=== PATIENT | female | born 1950 | race Caucasian/White ===

== ENCOUNTER 2020-10-24 09:57 | Outpatient (CLI) | payer MEDICARE, SELFPAY ==
--- NOTE | ~2020-10-24 | DEXA_ITS ---
Bone Density Report Name: Dimple Ferguson Age: 70 Sex: Female Ethnicity: White Date of : 1950 Indication: osteopenia; height loss; Referring Provider: Krissy Clifton Study: Bone densitometry was performed. Exam Date: October 24, 2020 Accession number: [id number] Bone Density: Region BMD T-score Z-score Classification Femoral Neck (Left) 0.680 -1.5 0.3 Osteopenia Total Hip (Left) 0.794 -1.2 0.3 Osteopenia Total Hip Bilateral Avg 0.811 -1.1 0.5 Osteopenia Femoral Neck (Right) 0.681 -1.5 0.3 Osteopenia Total Hip (Right) 0.826 -1.0 0.6 Normal World Health Organization criteria for BMD impression classify patients as: Normal (T-score at or above -1.0), Osteopenia (T-score between -1.0 and -2.5), or Osteoporosis (T-score at or below -2.5). 10-year Fracture Risk(1): Major Osteoporotic Fracture 9.8% Hip Fracture 1.4% Reported Risk Factors: [place] (), Neck BMD=0.681, BMI=30.3 (1) FRAX(R) Version 3.08. Fracture probability calculated for an untreated patient. Fracture probability may be lower if the patient has received treatment. Previous Exams: Region Exam Age BMD T-score BMD Change BMD Change Date g/cm2 vs Baseline vs Previous Total Hip(Left) 10/24/2020 70 0.794 -1.2 -0.145(-15.4%) 0.041(5.4%)* 06/21/2018 68 0.753 -1.5 -0.186(-19.8%) 0.063(9.1%)* 10/25/2015 65 0.690 -2.1 -0.248(-26.5%) -0.099(-12.5%) 05/05/2012 62 0.789 -1.3 -0.149(-15.9%) -0.125(-13.7%) 08/08/2005 55 0.914 -0.2 -0.024(-2.6%) -0.024(-2.6%) 12/07/2002 52 0.939 0.0 Total Hip(Right) 10/24/2020 70 0.826 -1.0 -0.179(-17.8%) 0.049(6.3%)* 06/21/2018 68 0.777 -1.4 -0.228(-22.7%) 0.035(4.7%)* 10/25/2015 65 0.742 -1.6 -0.263(-26.1%) -0.078(-9.5%)# 05/05/2012 62 0.820 -1.0 -0.185(-18.4%) -0.156(-16.0%) 08/08/2005 55 0.976 0.3 -0.029(-2.9%)* -0.029(-2.9%)* 12/07/2002 52 1.005 0.5 *Denotes significance at 95% confidence level, LSC for Total Hip = 0.027 g/cm2 Clinical Information Provided by Patient: Has used the following medications: Vitamin D, Calcium Patient maximum height was 62 Menopause Age: 45 Does not regularly consume dairy products Drinks caffeinated beverages Onset of menses at age 12 Number of children 3 Impression: The patient has low bone mass, based on the Left Femoral Neck T-score. The patient has an estimated ten-year risk of hip fracture of 1.4% and an estimated ten-year risk of major fracture of 9.8%, based on the
--- NOTE | ~2020-10-24 | MM_ITS ---
EXAMINATION: MM screening [facility] BI w racquel HISTORY: Screening mammogram TECHNIQUE: Craniocaudal and mediolateral oblique 3-D tomosynthesis images were obtained and synthetic 2-D images were generated. CAD analysis was submitted and interpreted. COMPARISON: 09/28/2019, 09/19/2018, 09/09/2017 BREAST PARENCHYMAL COMPOSITION: There are scattered areas of fibroglandular density. FINDINGS: RIGHT BREAST: There is no evidence of suspicious mass, calcification, or architectural distortion to suggest malignancy. There has been no significant interval change. LEFT BREAST: An asymmetry is present in the anterior third inner breast 4 cm from the nipple on the c raniocaudal view. IMPRESSION: 1. Left breast asymmetry. 2. Additional mammographic views and possible breast ultrasound are recommended. BI-RADS Category 0: Incomplete: Needs additional imaging evaluation. Reviewed, dictated and finalized at location A. FINISHER MACHINE IMPRESSION: 1. Left breast asymmetry. 2. Additional mammographic views and possible breast ultrasound are recommended . BI-RADS Category 0: Incomplete: Needs additional imaging evaluation.
== END 2020-10-24 09:58 | disposition home or self-care (01) ==
DX: Z12.31 Encounter for screening mammogram for malignant neoplasm of breast (principal); Z78.0 Asymptomatic menopausal state; M85.89 Other specified disorders of bone density and structure, multiple sites
CPT/HCPCS: 77063; 77067; 77080

== ENCOUNTER 2020-11-14 09:49 | Outpatient (CLI) | payer MEDICARE, SELFPAY ==
[2020-11-14 11:25] LABS: Vitamin D 25 Hydroxy 90.5 ng/mL
== END 2020-11-14 09:50 | disposition home or self-care (01) ==
DX: Z13.21 Encounter for screening for nutritional disorder (principal); M81.0 Age-related osteoporosis without current pathological fracture
CPT/HCPCS: 36415; 82306

== ENCOUNTER 2020-11-21 11:23 | Outpatient (CLI) | payer MEDICARE, SELFPAY ==
--- NOTE | ~2020-11-21 | MMUS_ITS ---
EXAMINATION: MM diagnostic mammo unilat LT, US breast LT limited HISTORY: Follow-up left breast mass TECHNIQUE: Additional 3-D tomosynthesis images of the left breast were performed and synthetic 2-D im ages were generated. CAD analysis was submitted and interpreted. High resolution Limited left breast ultrasound was performed. COMPARISON: 10/24/2020 BREAST PARENCHYMAL COMPOSITION: Breast composed of scattered areas of fibroglandular density. FINDINGS: MAMMOGRAPHIC FINDINGS: There are no suspicious masses, calcifications or architectural distortion in the left breast to sugg est malignancy. ULTRASOUND: Limited left breast ultrasound: There is a subareolar cyst measuring 7 mm. No suspicious masses to zee ggest malignancy. IMPRESSION: 1. No evidence for malignancy in the left breast. 2. Routine yearly screening mammogram and regular clinical breast examination are recommended. BI-RADS Category 2: Benign finding(s). Reviewed, dictated and finalized at location A. F DRAFTER IMPRESSION: 1. No evidence for malignancy in the left breast. 2. Routine yearly screening mammogram and regular clinical breast examination a re recommended. BI-RADS Category 2: Benign finding(s).
== END 2020-11-21 11:24 | disposition home or self-care (01) ==
DX: R92.8 Other abnormal and inconclusive findings on diagnostic imaging of breast (principal)
CPT/HCPCS: 76642; 77065

== ENCOUNTER 2021-12-31 10:04 | Outpatient (CLI) | payer MEDICARE, SELFPAY ==
--- NOTE | ~2021-12-31 | MM_ITS ---
EXAMINATION: MM screening [facility] BI w racquel HISTORY: Screening mammogram TECHNIQUE: Craniocaudal and mediolateral oblique 3-D tomosynthesis images were obtained and synthetic 2-D images were generated. CAD analysis was submitted and interpreted. COMPARISON: 11/2020 diagnostic left mammogram and limited left breast ultrasound examination 10/2020, 09/28/2019 bilateral screening mammogram examinations BREAST PARENCHYMAL COMPOSITION: There are scattered areas of fibroglandular density. FINDINGS: There is no evidence of suspicious mass, calcification, or architectural distortion to sugg est malignancy in either breast. There has been no suspicious interval change. IMPRESSION: 1. No mammographic evidence of malignancy. 2. Recommend routine screening mammography in one year. BI-RADS Category 1: Negative Reviewed, dictated and finalized at location A.
== END 2021-12-31 10:05 | disposition home or self-care (01) ==
LOC: ANHIMG 10:06
PROVIDERS: Visit Provider Internal Medicine
DX: Z12.31 Encounter for screening mammogram for malignant neoplasm of breast (principal)
CPT/HCPCS: 77063; 77067

== ENCOUNTER 2022-10-07 13:55 | Emergency (ER) | payer MEDICARE, SELFPAY ==
--- NOTE | 2022-10-07 14:01 | ED.URI ---
HPI - URI/Sore Throat General Chief Complaint: Upper Respiratory Infection Stated Complaint: Sinus/Cough Time Seen by Provider: 10/07/22 14:10 Source: patient Mode of arrival: ambulatory Limitations: no limitations History of Present Illness HPI Narrative: Dimple is a 72-year-old female patient presenting to the clinic today with complaints of sinus congestion, fever, and cough x2 days. She reports no shortness of breath or chest pain. No known exposure to anyone with COVID, flu, or strep. MD elicited complaint: nasal congestion Related Data Home Medications Medication Instructions Recorded Confirmed Allergy Med. 10/07/22 Ibuprofen 10/07/22 Mucinex 10/07/22 Ortho Soothe 10/07/22 Pepcid AC 10/07/22 Xyzal 10/07/22 alendronate 70 mg tablet mg PO 10/07/22 cyclosporine 0.05 % eye drops in a drp 10/07/22 dropperette (Restasis) lisinopril 2.5 mg tablet mg 10/07/22 magnesium 10/07/22 mirabegron 50 mg tablet,extended mg PO 10/07/22 release 24 hr (Myrbetriq) rosuvastatin 10 mg tablet mg 10/07/22 Allergies Allergy/AdvReac Type Severity Reaction Status Date / Time No Known Allergies Allergy Verified 10/07/22 14:03 Review of Systems Review of Systems: Pertinent positives per HPI. Patient denies any rash, headache, visual changes, dizziness, shortness of breath, chest pain, palpitations, nausea, vomiting, diarrhea, constipation, abdominal pain, or any urinary issues. PMFSH Comments At the time of my signature, I reviewed and agree with the nursing past medical, surgical, social, and family history. There is no relevant family history pertinent to the patient complaint. Exam Narrative: General: Well-developed, well nourished, in no apparent distress Head: Normocephalic, atraumatic Eyes: Pupils equally round and reactive to light bilaterally, EOM intact, sclera and conjunctive clear, no discharge, lids normal Ears: TMs intact and clear, ear canals clear, no drainage, grossly hearing normal. Nose: Nares patent, clear nasal discharge, no inflammation, no sinus tenderness. Mouth: Oral pharynx without lesions or masses, good dentition, MMM. Postnasal drip Neck: Supple, trachea midline, no enlargement of anterior or posterior cervical nodes, no thyroid masses or goiter palpable. Cardio: Regular rate and rhythm, s1 and s2 normal, no murmur appreciated. Resp: Clear to auscultation bilaterally, no rhonchi, rales, wheezing or rubs Course Course Emergency Course: Portions of this record may have been created with voice recognition software. Level of Care: Express Care Visit Vital Signs Vital signs: Vital Signs Temperature 37.8 C H 10/07/22 14:05 Pulse Rate 97 10/07/22 14:05 Respiratory Rate 18 10/07/22 14:05 Blood Pressure 141/71 H 10/07/22 14:05 Pulse Oximetry 98 10/07/22 14:05 Oxygen Delivery Room Air 10/07/22 14:05 Temperature 37.8 C H 10/07/22 14:05 Pulse Rate 97 10/07/22 14:05 Respiratory Rate 18 10/07/22 14:05 Blood Pressure 141/71 H 10/07/22 14:05 Pulse Oximetry 98 10/07/22 14:05 Oxygen Delivery Room Air 10/07/22 14:05 Vital signs reviewed MDM - URI/Sore Throat MDM Narrative Medical decision making narrative: At the time of visit patient is resting comfortably on the exam table. COVID and influenza testing were performed in the clinic today. COVID testing was positive influenza testing was negative. Prescription was sent in for antivirals. Supportive measures were discussed with the patient she voiced understanding discharge instructions and agrees to treatment plan. Differential Diagnosis Differential diagnosis: Likely upper respiratory infection, otitis media, sinusitis, viral infection, bronchitis, influenza, pharyngitis and other (COVID) Lab Data Labs: Lab Results 10/07/22 Range/Units 14:19 POC SARS CoV-2 Ag Positive (Negative) Influenza A Screen Negative Re
[2022-10-07 14:05] VITALS: BP 141/71; PULSE 97; RESP 18; TEMP 37.8; O2SAT 98
== END 2022-10-07 14:54 | disposition home or self-care (01) ==
PROVIDERS: Emergency Provider Nurse Practitioner Family; PCP Internal Medicine
DX: U07.1 COVID-19 (principal); I10 Essential (primary) hypertension; E78.00 Pure hypercholesterolemia, unspecified; M41.9 Scoliosis, unspecified; Z85.820 Personal history of malignant melanoma of skin
CPT/HCPCS: 87426; 87804; 99213; C9803; G0463

== ENCOUNTER 2022-11-09 09:55 | Outpatient (CLI) | payer MEDICARE, SELFPAY ==
--- NOTE | ~2022-11-09 | DEXA_ITS ---
Bone Density Report Name: WILLIAMS HALEY Age: 72 Sex: Female Ethnicity: White Date of : 1950 Indication: osteopenia; monitoring treatment; height loss; cancer; postmenopausal Referring Provider: AHMETNATE Study: Bone densitometry was performed. Exam Date: November 09, 2022 Accession number: [id number] Bone Density: Region BMD T-score Z-score Classification Femoral Neck (Left) 0.664 -1.7 0.3 Osteopenia Total Hip (Left) 0.780 -1.3 0.3 Osteopenia Femoral Neck (Right) 0.687 -1.5 0.5 Osteopenia Total Hip (Right) 0.818 -1.0 0.6 Normal Total Hip Mean 0.799 -1.2 0.5 Osteopenia World Health Organization criteria for BMD impression classify patients as: Normal (T-score at or above -1.0), Osteopenia (T-score between -1.0 and -2.5), or Osteoporosis (T-score at or below -2.5). 10-year Fracture Risk: FRAX not reported because: Treated for osteoporosis Previous Exams: Region Exam Age BMD T-score BMD Change BMD Change Date g/cm2 vs Baseline vs Previous Total Hip(Left) 11/09/2022 72 0.780 -1.3 -0.009 (-1.2%) -0.014 (-1.7%) 10/24/2020 70 0.794 -1.2 0.005 (0.6%)# 0.041 (5.4%)* 06/21/2018 68 0.753 -1.5 -0.036 (-4.6%) 0.063 (9.1%)* 10/25/2015 65 0.690 -2.1 -0.099 (-12.5% -0.099 (-12.5% 05/05/2012 62 0.789 -1.3 Total Hip(Right) 11/09/2022 72 0.818 -1.0 -0.001 (-0.2%) -0.008 (-0.9%) 10/24/2020 70 0.826 -1.0 0.006 (0.7%)# 0.049 (6.3%)* 06/21/2018 68 0.777 -1.4 -0.043 (-5.2%) 0.035 (4.7%)* 10/25/2015 65 0.742 -1.6 -0.078 (-9.5%) -0.078 (-9.5%) 05/05/2012 62 0.820 -1.0 *Denotes significance at 95% confidence level, LSC for Total Hip = 0.027 g/cm2 # Denotes dissimilar scan types or analysis methods Clinical Information Provided by Patient: Is being treated for osteoporosis Has used the following medications: Fosamax (i.e. alendronate), Vitamin D, Calcium Has the following medical conditions: Cancer Patient maximum height was 62 Menopause Age: 45 Onset of menses at age 14 Number of children 3 Impression: The patient has low bone mass, based on the Left Femoral Neck T-score. No significant bone loss was observed. Discussion: PATIENT UNDER TREATMENT WITH NO SIGNIFICANT BMD LOSS SINCE LAST EXAM. In an untreated patient, BMD typically declines with age. A lack of decline or gain is usually a sign that treatment is efficacious and fracture risk is reduced. It is important to ask patients whether they are taking their medications and
== END 2022-11-09 09:56 | disposition home or self-care (01) ==
PROVIDERS: PCP Internal Medicine; Visit Provider Internal Medicine
DX: Z78.0 Asymptomatic menopausal state (principal); M81.0 Age-related osteoporosis without current pathological fracture; M85.89 Other specified disorders of bone density and structure, multiple sites
CPT/HCPCS: 77080

== ENCOUNTER 2023-02-18 09:12 | Outpatient (CLI) | payer MEDICARE, SELFPAY ==
--- NOTE | ~2023-02-18 | MM_ITS ---
EXAMINATION: MM screening [facility] BI w racquel HISTORY: Screening mammogram TECHNIQUE: Craniocaudal and mediolateral oblique 3-D tomosynthesis images were obtained and synthetic 2-D images were generated. CAD analysis was submitted and interpreted. COMPARISON: bilateral screening mammogram 3. diagnostic left mammogram and limited left breast ultrasound examination BREAST PARENCHYMAL COMPOSITION: There are scattered areas of fibroglandular density. FINDINGS: There is no evidence of suspicious mass, calcification, or architectural distortion to sugg est malignancy in either breast. There has been no suspicious interval change. IMPRESSION: 1. No mammographic evidence of malignancy. 2. Recommend routine screening mammography in one year. BI-RADS Category 1: Negative Reviewed, dictated and finalized at location A.
== END 2023-02-18 09:13 | disposition home or self-care (01) ==
PROVIDERS: PCP Internal Medicine; Visit Provider Internal Medicine
DX: Z12.31 Encounter for screening mammogram for malignant neoplasm of breast (principal)
CPT/HCPCS: 77063; 77067

== ENCOUNTER 2024-05-03 10:03 | Outpatient (CLI) | payer MEDICARE, SELFPAY ==
--- NOTE | ~2024-05-03 | MM_ITS ---
EXAMINATION: MM screening [facility] BI w racquel HISTORY: Screening TECHNIQUE: Craniocaudal and mediolateral oblique 3-D tomosynthesis images were obtained and synthetic 2-D images were generated. CAD analysis was submitted and interpreted. COMPARISON: Comparison to multiple prior studies sequentially, with oldest reviewed study dated 08/22. BREAST PARENCHYMAL COMPOSITION: Not dense: There are scattered areas of fibroglandular density. FINDINGS: There is no evidence of suspicious mass, calcification, or architectural distortion to sugg est malignancy in either breast. There has been no suspicious interval change. IMPRESSION: 1. No mammographic evidence of malignancy. 2. Recommend routine screening mammography in one year. BI-RADS Category 1: Negative Reviewed, dictated and finalized at location B.
== END 2024-05-03 10:04 | disposition home or self-care (01) ==
LOC: ANHIMG 10:05
PROVIDERS: PCP Internal Medicine; Visit Provider Internal Medicine
DX: Z12.31 Encounter for screening mammogram for malignant neoplasm of breast (principal)
CPT/HCPCS: 77063; 77067

== ENCOUNTER 2025-05-29 12:14 | Outpatient (CLI) | payer MEDICARE, SELFPAY ==
--- OUTSIDE RECORDS SUMMARY | 2010-02-14 07:30 | XMS_ITS | Continuity of Care Document ---
Author Organization [facility] Address [address] [place] [address] [place] [address] Phone Care Team Providers Care Pharmacy Benefit Manager Name Role Phone Yadiel Garcia Unavailable Unavailable Procedures Procedure Date Visual Field Examination-Technical Office/outpatient Visit, Est Office/outpatient Visit, Est Eye Exam, New Patient Advance Directives Directive Yes / No Effective Date File Name No Information Encounters Encounter Description Practice Location Reason(s) For Visit Diagnoses Date Provider Providers Copied on Encounter [facility], [address] [place] [address] [address], [place], [place], [id number], tel:[phone] [facility] No Information 0 Jose Yadiel. [address] [place] [address], [facility], . tel:[phone] Referring Provider: Yadiel small, [address] [place] [address], [facility]. tel:[phone] Office/outpat ient [place], [facility] [address] [place] [address] [address], [place], [place], [id number], tel:[phone] [facility] No Information 0 Deriknasregi Yadiel. [address] [place] [address], [facility], [place]. tel:[phone] Office/outpat ient Visit, [facility], [address], [place], [place], [id number], [place] tel:[phone] [facility] No Information 1 9 Krishnasamy Yadiel. [address], [facility], [place]. tel:[phone] [facility], [address], [place], [place], [id number], [place] tel:[phone] [facility] No Information 0200 9 Krishnasamy Yadiel. [address], [facility], [place]. tel:[phone] Family History Family Member Type Diagnosis Age At Onset No Information Payers Payer name Insurance type Covered republican ID Authoriza tion(s) No Information Social History Type Description Quantity Date Captured Comments Sex Female Smoking Status No Information Chief Complaint And Reason For Visit No Information Reason For Referral Reason For Referral No Information History Of Present Illness Encounter Date Complaint History Of Prese nt Illness No Information Functional Status Date Functional Assessmen t No Information Instructions Date Instruction Additional Infor mation No Information Assessments Type Assessment Date No Information Patient Care Teams Name Effective Dates (start - stop) Status Members No Information
--- NOTE | ~2025-05-29 | MM_ITS ---
EXAMINATION: MM screening benjamin BI w racquel HISTORY: Screening TECHNIQUE: Craniocaudal and mediolateral oblique 3-D tomosynthesis images were obtained and synthetic 2-D images were generated. CAD analysis was submitted and interpreted. COMPARISON: Comparison to multiple prior studies sequentially, with oldest reviewed study dated , 09/19/2018 BREAST PARENCHYMAL COMPOSITION: There are scattered areas of fibroglandular density. FINDINGS: There is no evidence of suspicious mass, calcification, or architectural distortion to suggest malignancy in either breast. IMPRESSION: 1. No mammographic evidence of malignancy. 2. Recommend routine screening mammography in one year. BI-RADS Category 1: Negative Reviewed, dictated and finalized at location B.
--- OUTSIDE RECORDS SUMMARY | 2025-05-29 13:45 | XMS_ITS | Clinical Summary ---
Author Organization [facility] [employer] Address [address] [place] [address] Care Team Providers Care Cook Chill Technician Name Role Phone Veronika Wyatt MD Primary Care Provider [phone] Source Comments [facility] [employer],non-[facility] Affiliates and Associated Physician Practices is amultiple site organization consisting of ambulatory clinics and hospital sitesin [place], [place], [place] and [place]. This disclosure is being madepursuant to the Care Everywhere program and may not contain all information available regarding this patient. Last updated 18.[facility] [employer] Social History Tobacco Use Types Packs/Day Years Used Date Smoking Tobacco: Never Assessed Comments Unknown Sex and Gender Information Value Date Recorded Sex Assigned at Not on file Legal Sex Female 6:20 AM UPHOLSTERY TRIMMER Gender Identity Not on file Sexual Orientation Not on file Last Filed Vital Signs Vital Sign Reading Time Taken Comments Blood Pressure - - Pulse - - Temperature - - Respiratory Rate - - Oxygen Saturation - - Inhaled Oxygen Concentration - - Weight 67.1 kg (148 lb) 10/28/2015 10:12 AM UPHOLSTERY TRIMMER Height 152.4 cm (5') 10/28/2015 10:12 AM UPHOLSTERY TRIMMER Body Mass Index 28.9 10/28/2015 10:12 AM UPHOLSTERY TRIMMER Plan of Treatment Health Maintenance Due Date Last Done Comments BONE DENSITY TESTING 1950 COLOGUARD (AGES 45-75) - COL ON CA SCREENING 1950 COLON MONITORING 1950 COLONOSCOPY - COLON CA SCREENING 1950 CT COLONOGRAPHY - COLON CA SCREENING 1950 Colorectal Cancer Screening 1950 FIT - COLON CA SCREENING 1950 FLEX SIG - COLON CA SCREENING 1950 LIPID TESTING 1950 MAMMOGRAM 1950 HEPATITIS C SCREENING 01/30/1968 DTAP/TDAP/TD VACCINES (1 - Tdap) 1969 PNEUMOCOCCAL VACCINE 50+ (1 of 1 - PCV) 02/04/2000 ZOSTER VACCINE (1 of 2) 02/04/2000 DEPRESSION SCREENING 09/20/2024 Respiratory Syncytial Virus (RSV) Vaccine Pt: or over 60 yrs (1 - 1-dose 75+ series) 2025 COVID-19 VACCINE (1 - 2023-2 5 season) 2025 INFLUENZA VACCINE (#1) 2025 HEPATITIS B VACCINE Aged Out No longe r eligible based on patient's age to complete this topic HIB VACCINE Aged Out No longer eligi ble based on patient's age to complete this topic HPV VACCINE Aged Out No longer eligi ble based on patient's age to complete this topic MENINGOCOCCAL (Group B) VACC INE SHARED DECISION-MAKING Aged Out No longer eligibl e based on patient's age to complete this topic MENINGOCOCCAL GROUPS A/C/Y/W VACCINE Aged Out No longer eligible b ased on patient's age to complete this topic Insurance [facility] Care Teams Cook Chill Technician Relationship Specialty Start Date End Date Veronika Wyatt MD [facility] [place] [address] PCP - General Internal Medicine 12/28/12
--- OUTSIDE RECORDS SUMMARY | 2025-05-29 13:45 | XMS_ITS | Clinical Summary ---
Author Organization [facility] Address [address] [place] [address] Phone Care Team Providers Care Teenage Babysitter Name Role Phone Krissy Clifton MD Primary Care Provider + Allergies Active Allergy Reactions Criticality Noted Date Comments Adhesive Rash Low 03/05/2016 Cefadroxil Rash Low 10/12/2016 Sulfa (Sulfonamide Antibiotics) Hives High 09/21 Medications cetirizine (ZYRTEC) 10 mg tablet Take 10 mg by mouth daily. Active cholecalciferol , vitamin D3, 1,000 unit Take by mouth. Acti ve calcium-choleca lciferol (OS-FORD 500+D) 500 mg(1,250mg) -200 unit tablet Take 1 Tablet by mouth daily. Active fexofenadine HCl (MUCINEX ALLERGY ORAL) Take by mouth. A ctive MELATONIN ORAL Take by mouth. Active benzonatate (TESSALON) 100 mg capsuleIndicati ons:Cough Take 1 Capsule (100 mg) by mouth 3 times daily as needed for Cough. 90 Capsule 1 2 Active Restasis 0.05 % emulsion INSTILL 1 DROP IN BOTH EYES TWICE DAILY 3 Active meloxicam (MOBIC) 15 mg tablet Take 15 mg by mouth daily. 3 Active OTHER Uqora urinary supplement very seldom taking medication Active multivitamin (DAILY-NICHO) tablet Take 1 Tablet by mouth daily. Active levocetirizine (Xyzal) 5 mg tablet Take 5 mg by mouth late in the day. Active lisinopriL (PRINIVIL) 2.5 mg tabletIndicatio ns:HTN (hypertension), benign Take 1 Tablet (2.5 mg) by mouth daily. 180 Tablet 1 4 Active mupirocin (BACTROBAN) 2 % Ointment APPLY TOPICALLY TO BIOPSY SITE DAILY 5 Active pantoprazole (PROTONIX) 40 mg Tablet, Delayed Release (E.C.)Indicatio ns:Gastroesopha geal reflux disease, unspecified whether esophagitis present TAKE 1 TABLET(40 MG) BY MOUTH DAILY 90 Tablet 1 5 Active vibegron (Gemtesa) 75 mg TabletIndicatio ns:Overactive bladder Take 75 mg by mouth daily. 90 Tablet 1 5 Active alendronate (FOSAMAX) 70 mg tablet TAKE 1 TABLET BY MOUTH EVERY 7 DAYS ON AN EMPTY STOMACH BEFORE OTHER MEDICATIONS WITH 8 OUNCES OF WATER, STAY UPRIGHT FOR 30 MINUTES 12 Tablet 1 5 Active tirzepatide, weight loss, (ZEPBOUND) 2.5 mg/0.5 mL SolutionIndicat ions:Class 1 drug-induced obesity with serious comorbidity and body mass index (BMI) of 32.0 to 32.9 in adult,Prediabet es,HTN (hypertension), benign Inject 0.5 mL (2.5 mg) by subcutaneous injection every 7 days. 2 mL 6 5 Active fluticasone propionate (FLONASE) 50 mcg/spray [place], Suspension nasal inhalerIndicati ons:Chronic maxillary sinusitis,Seaso nal allergic rhinitis due to pollen Administer 2 Sprays in each nostril daily. 16 Gram 6 5 Active azelastine (ASTELIN) 137 mcg/actuation nasal sprayIndication s:Chronic seasonal allergic rhinitis due to pollen Administer 2 Sprays in each nostril 2 times daily. 30 mL 11 5 Active Active Problems Patient Care Coordination No te Formatting of this note migh t be different from the original. HCC Full Review 07/14/16 tn Problem Noted Date Diagnosed Date Varicose veins of both lower extremities with pa in 02/08/2025 Restless leg 01/18/2024 Assessment & Plan (01/18/2024 3:43 PM CDT): Patient would like to try OTC medication such as pain medication and topical pain medication. Recommend exercise. Will also screen for other underlying disease with blood work as well. Overactive bladder 01/18/2024 Assessment & Plan (01/18/2024 3:45 PM CDT): Increase oxybutynin to 10mg, urology referral placed. Prediabetes 12/09/2020 HTN (hypertension), benign 06/18/2020 Assessment & Plan (01/18/2024 3:41 PM CDT): Controlled. Continue current medication. Age-related osteoporosis wit hout current pathological fracture 09/08/2018 S/P parathyroidectomy 04/09/2016 History of hyperparathyroidism 04/09/2016 History of melanoma 10/17/2015 Scoliosis 10/17/2015 Overview (10/24/2015): Severe lumbar levoscoliosis Raynaud's phenomenon 2014 Overview (01/18/2024): Raynaud phenomenon Arthritis of knee 2014 Overview (01/18/2024): Arthritis of knee Resolved Problems Problem Noted Date Diagnosed Date Resolved Date Hyperparathyroidism 02/10/2016 03/20/20 16 Compression fracture 10/24/2015 016 Overview (10/24/2015): Probably acute mild compression fractures at the L2-L3 endplates as seen on MRI 10/23/15. Thyroid nodule 10/24/2015 01/06/2023 Overview (06/08/2017): Focal hypoechoic nodule seen on thyroid u/s 02/12/2011, which may represent an intrathyroidal parathyroid adenoma. Sestamibi imaging was recommended for confirmation. Further imaging revealed parathryoid adenoma, s/p parathyroidectomy Encounters Date Type Department Care Team Description 05/01/2025 Abstract [facility] - [facility] [address] [place] [id number] Krissy Clifton MD 04/04/2025 External Device Data [facility] ABSTRACTION Provider, Abstract 04/04/2025 External Device Data [facility] [place]STRACTION Provider, Abstract 03/13/2025 10:00 AM CDT Office Visit [facility] Urology at the [facility] [address] [place] [address] Leanna Fernandez MD Overactive bladder (Primary Dx); Urge incontinence; SIVA (stress urinary incontinence, female) 03/12/2025 10:00 AM CDT - 03/12/2025 11:59 PM CDT Hospital Encounter [facility] [address] [place] [phone] Krissy Clifton MD Discharge Disposition: Home or Self Care 03/07/2025 External Device Data [facility] ABSTRACTION Provider, Abstract from Last 3 Months Immunizations Immunization Administration Dates Next Due (ADACEL/BOOSTRIX)(10 YR UP) TDAP VACCINE, 0.5ML, IM 03/10/2007 (PNEUMOVAX 23)(50 YRS UP) PN EUMOCOCCAL POLYSACCHARIDE (PPV23) 0.5 ML, IM 06/08/2017 (PREVNAR 13)(6 WKS UP) PNEUM OCOCCAL CONJUGATE (PCV13) 0.5 ML, IM 07/25/2015 (SPIKEVAX) (12 YRS UP PRIMAR Y SERIES) COVID-19 VACCINE - MRNA-1273(PF) 100 MCG/0.5 ML IM SUSP 12/05/2020,11/07/2020 (TDVAX)(7 YRS UP) TETANUS AN D DIPHTHERIA TOXOIDS, ADSORBED (2 LF OF TETANUS TOXOID AND 2 LF OF DIPHTHERIA TOXOID), 0.5ML (PF), IM 03/10/2007 INFLUENZA VACCINE HIGH DOSE QUADRIVALENT 65 YR UP PF IM 07/08/2023,07/02/2022,06/26/2021 INFLUENZA VACCINE HIGH DOSE TRIVALENT SPLIT VIRUS, (65 YR UP), 0.5ML (PF), IM 07/27/2024 INFLUENZA VACCINE QUADRIVALE NT 6 MOS UP PF IM 05/28/2020 Influenza Seasonal Unspecifi ed Formulation IM 07/28/2010 Influenza Vaccine High Dose 65+ Yrs IM 9,07/25/2015 Influenza Vaccine Split 3+ Yrs PF IM 07/14/2016, 10/17/2015 Influenza Vaccine Tri Split 4+ Im 06/07/2018,,07/28/2011 Influenza Vaccine Tri Split 5+ Im 06/08/2017 PREVNAR (PCV13) pneumococcal 13-valent conjugate Vaccine 07/25/2015 Zoster Vaccine Live SQ 01/22/2011 Family History Medical History Relation Name Comments Cancer Father Mele Fernández Bladder Cance r Macular Degen Father Mele Fernández Cancer Mother Ivis Fernández Melamon a Kidney Disease Mother Ivis Fernández Poly- cystic kidney disease Breast Cancer Sister 1 Sulma Bowling Left Breast/ ductile Kidney Disease Sister 1 Sulma Bowling Poly-cystic disease Cancer Sister 2 Yojana Avilez Uterian Cancer Colon Cancer Neg Hx Relation Name Status Comments Father Mele Fernández (Age 77) bladder cancer Mother Ivis Fernández (Age 72) bl eeding ulcer Sister 1 Sulma Bowling Sister 2 Yojana Avilez Social History Tobacco Use Types Packs/Day Years Used Date Smoking Tobacco: Never Smokeless Tobacco: Never Tobacco Cessation:Counseling Given: No Alcohol Use Standard Drinks/Week Comments Yes 0 (1 standard drink = 0.6 oz pur e alcohol) Wine occasionally Financial Resource Strain Answer Date R ecorded How hard is it for you to pa y for the very basics like food, housing, medical care, and heating? Not very hard 07/02/2022 Food Insecurity Answer Date Recorded In the past 12 months, have you worried that your food would run out before you had money to buy more? Never true 07/02/2022 In the past 12 months, did y ou run out of food and didn't have money to buy more? Never true 07/02/2022 Transportation Needs Answer Date Record ed In the past 12 months, has l ack of transportation kept you from medical appointments or from getting medications? No 07/02/2022 Lack of Transportation (Non-Medical) Not on file 07/02/2022 Comments No Sex and Gender Information Value Date Recorded Sex Assigned at Female 07/23/2024 10:30 PM PRODUCT DESIGN ENGINEER Legal Sex Female 5:40 AM PRODUCT DESIGN ENGINEER Gender Identity Female 07/23/2024 10:30 PM PRODUCT DESIGN ENGINEER Sexual Orientation Not on file Last Filed Vital Signs Vital Sign Reading Time Taken Comments Blood Pressure 116/80 02/08/2025 9:52 AM CDT Pulse 92 02/08/2025 9:52 AM CDT Temperature 37.3 C (99.2 F) 02/08/2025 9:52 AM CDT Respiratory Rate 16 02/08/2025 9:52 AM CDT Oxygen Saturation 95% 02/08/2025 9:52 AM CDT Inhaled Oxygen Concentration - - Weight 72.6 kg (160 lb) 03/13/2025 10:00 AM CDT Height 149.9 cm (4' 11) 03/13/2025 10:00 AM CDT Body Mass Index 32.32 03/13/2025 10:00 AM CDT Plan of Treatment Upcoming Encounters Date Type Department Care Team (Late st Contact Info) Description 06/21/2025 12:00 PM CDT Office Visit [facility] Internal Medicine - [address] [address] Linda Yip FNP [address] [place] [address] 03/04/2026 10:00 AM CDT Office Visit [facility] Internal Medicine - [address] [address] Krissy Clifton MD [address] [place] [address] 03/14/2026 10:00 AM CDT Office Visit [facility] Urology at the [facility] Medicine [address] [place] [phone] Leanna Fernandez MD [address] [address] Health Maintenance Due Date Last Done Comments FIT/ DNA Q 3 YEARS (AUTO ORDER) 02/04/1968 FIT/FOBT Q 1 YEAR (AUTO ORDER) 02/04/1968 FLEX SIG/CT COLONOGRAPHY Q 5 YEARS (AUTO ORDER) 02/04/1968 FIT-DNA Q 3 years 1995 FIT/FOBT Q 1 year 1995 Flex Sig/CT Colonography Q 5 years 1995 ZOSTER VACCINE (2 of 3) 03/19/2011 01/22/2011 DTAP/TDAP/TD VACCINES (2 - T d or Tdap) 03/10/2017 03/10/2007, 03/10/2007 OSTEOPOROSIS SCREENING 11/09/2024 3, 06/21/2018, 10/25/2015, Additional history exists RSV VACCINE (60+ or ) (1 - 1-dose 75+ series) 2025 INFLUENZA VACCINE (#1) 2025 4, 07/27/2024, 07/08/2023, Additional history exists COVID-19 Vaccine (3 - 2024-2 6 season) 2025 12/05/2020, 11/07/2020 COLORECTAL CANCER SCREENING (AUTO ORDER) 08/26/2032 08/26/2022, 08/26/2022, 08/22/2012 COLORECTAL SCREENING 08/26/2032 08/26/2022, 08/26/2022, 08/22/2012, Additional history exists Colorectal Cancer Screening (AUTO ORDER) 08/26/2032 Colorectal Cancer Screening 08/26/2032 PNEUMOCOCCAL VACCINE 50+ YEARS Completed 0 06/08/2017, 06/08/2017, 07/25/2015, Additional history exists [place] Preventative Visit/Annual Wellness Visit Completed 02/08/2025, 01/18/2024, 01/06/2023, Additional history exists Procedures Procedure Name Priority Date/Time Associated Diagnosis Comments US RENAL AND BLADDER Routine 03/12/2025 10:21 AM CDT Family history of polycystic kidney disease DEXA SCAN Routine 11/09/2022 COLONOSCOPY REPORT 08/26/2022 10 :17 AM PRODUCT DESIGN ENGINEER from Last 3 Months or Most Recently Relevant to Health Maintenance Results * US RENAL AND BLADDER (03/12/2025 10:21 AM CDT) Anatomical Region Laterality Modality Abdomen Ultrasound 03/12/2025 10:2 1 AM CDT Impressions 03/12/2025 2:54 PM CDT IMPRESSION: The right kidney appears echogenic compared with the left consistent with right-sided chronic medical renal disease. No hydronephrosis. Narrative 03/12/2025 2:54 PM CDT EXAM: US RENAL AND BLADDER DATE: 03/12/2025 2:48 PM HISTORY: Family history of polycystic kidney disease COMPARISON: None. TECHNIQUE: Real time and color-flow Doppler ultrasound of the kidneys. FINDINGS: Right kidney:8.8 x 5.4 x 5.9 cm. Left kidney:10.0 x 3.8 x 4.2 cm. The right kidney appears generally echogenic when compared with the left. These findings would be consistent with right-sided chronic medical renal disease. No hydronephrosis of either kidney is noted and there are no apparent renal masses. No bladder abnormalities are seen. Procedure Note Mandy Hooker MD - 03/12/2025 EXAM: US RENAL AND BLADDER DATE: 03/12/2025 2:48 PM HISTORY: Family history of polycystic kidney disease COMPARISON: None. TECHNIQUE: Real time and color-flow Doppler ultrasound of the kidneys. FINDINGS: Right kidney:8.8 x 5.4 x 5.9 cm. Left kidney:10.0 x 3.8 x 4.2 cm. The right kidney appears generally echogenic when compared with the left. These findings would be consistent with right-sided chronic medical renal disease. No hydronephrosis of either kidney is noted and there are no apparent renal masses. No bladder abnormalities are seen. IMPRESSION: The right kidney appears echogenic compared with the left consistent with right-sided chronic medical renal disease. No hydronephrosis. Krissy Clifton MD ORDERABLES Final Re sult * HM DEXA SCAN (11/09/2022) us Abstract Provider HEALTH MAINTENANCE Final Resul t [facility] CLIA #[id number] [address] [place] [address], * COLONOSCOPY REPORT (08/26/2022 10:17 AM PRODUCT DESIGN ENGINEER) Narrative Procedure Note Cherie Hernandez DO - 08/26/2022 10:17 AM CST [facility] Endoscopy Patient Name: Dimple Ferguson Procedure Date: 08/26/2022 Date of : 1950 Attending MD: Cherie Hernandez DO, Procedure: Colonoscopy Indications: Screening for colorectal malignant neoplasm (last colonoscopy was 10 years ago) No known FH of CRC or advanced polyps. Providers: Cherie Hernandez DO Referring MD: Krissy Clifton MD Medicines: Monitored Anesthesia Care Complications: No immediate complications. Procedure: Informed consent was obtained for the procedure, including moderate sedation after risks were discussed. Based on the pre-procedure assessment, including review of the patient's medical history, medications, allergies, and review of systems, the patient was deemed to be an appropriate candidate for sedation. A timeout was performed. Continuous ECG monitoring, pulse oximetry, blood pressure monitoring, and direct observation were performed. The Colonoscope was introduced through the anus and advanced to the cecum, identified by appendiceal orifice and ileocecal valve. The colonoscopy was performed with difficulty due to significant looping. Successful completion of the procedure was aided by withdrawing the scope and replacing with the pediatric colonoscope, straightening and shortening the scope to obtain bowel loop reduction and using scope torsion. The patient tolerated the procedure well. The quality of the bowel preparation was good. The quality of the bowel preparation was evaluated using the BBPS (Cook Bowel Preparation Scale) with scores of: Right Colon = 3, Transverse Colon = 3 and Left Colon = 3 (entire mucosa seen well with no residual staining, small fragments of stool or opaque liquid). The total BBPS score equals 9. The ileocecal valve, appendiceal orifice, and rectum were photographed. Estimated Blood Loss: Estimated blood loss was minimal. Findings: The colon (entire examined portion) revealed significantly excessive looping. Advancing the scope required using manual pressure, withdrawing the scope and replacing with the pediatric colonoscope, straightening and shortening the scope to obtain bowel loop reduction and using scope torsion. A 4 mm polyp was found in the cecum. The polyp was semi-sessile. The polyp was removed with a cold snare. Resection and retrieval were complete. Scattered small-mouthed diverticula were found in the entire colon. Internal hemorrhoids were found during retroflexion. The hemorrhoids were small. The exam was otherwise without abnormality on direct and retroflexion views. Impression: - There was significant looping of the colon. - One 4 mm polyp in the cecum, removed with a cold snare. Resected and retrieved. - Mild scattered diverticulosis. - Internal hemorrhoids. - The examination was otherwise normal on direct and retroflexion views. Recommendation: - Discharge patient to home. - High fiber diet. - Await pathology results. - Return to primary care physician as previously scheduled. - Your pathology results typically return within 3-5 business days. You may receive an email/[facility] notification that results are back. However, this does not mean that the physician has reviewed them yet. It will typically take 5-7 business days for the physician to review the results. We will notify you of the results once the physician has had a chance to review them. If you have not received results from the physician's office within 10 business days from the procedure, then please contact us at that point. Cherie Hernandez DO 08/26/2022 10:16:50 AM Number of Addenda: [address]; [place] [address] Cherie Hernandez DO GI PROCEDURE ORDERABLES Final Re sult from Last 3 Months or Most Recently Relevant to Health Maintenance Insurance [facility] [id number] Advance Directives For more information, please contact: [phone] * Full Code (Latest Code Status on File) Date Activated Date Inactivated Comments 08/26/2022 8:41 AM 08/26/2022 12:46 PM * Full Code Date Activated Date Inactivated Comments 03/12/2016 10:27 AM 03/12/2016 4:51 PM * Full Code Date Activated Date Inactivated Comments 03/12/2016 6:42 AM 03/12/2016 10:27 AM Care Teams Teenage Babysitter Relationship Specialty Start Date End Date Krissy Clifton MD [address] [place] [address] PCP - General Internal Medicine 10/19/19
--- OUTSIDE RECORDS SUMMARY | 2025-05-29 13:45 | XMS_ITS | Encounter Summary ---
Author Organization [facility] Address [address] [place] [address] Care Team Providers Care Plastic Surgery Assistant Name Role Phone Krissy Clifton MD Primary Care Provider + Encounter Details Date Type Department Care Team (Late st Contact Info) Description 08/27/2008 Outpatient Historical HIS ORTHOPEDIC TRAUMA Sabiha Joe MD NO ADDRESS ON FILE Social History Tobacco Use Types Packs/Day Years Used Date Smoking Tobacco: Never Assessed Comments Unknown Sex and Gender Information Value Date Recorded Sex Assigned at Female 07/23/2024 10:30 PM RN PROGRESSIVE CARE Legal Sex Female 5:40 AM RN PROGRESSIVE CARE Gender Identity Female 07/23/2024 10:30 PM RN PROGRESSIVE CARE Sexual Orientation Not on file documented as of this encounter Plan of Treatment Upcoming Encounters Date Type Department Care Team (Late st Contact Info) Description 06/21/2025 12:00 PM CDT Office Visit [facility] Internal Medicine - [address] [address] Linda Yip FNP [address] [place] [address] 03/04/2026 10:00 AM CDT Office Visit [facility] Internal Medicine [address] [address] Krissy Clifton MD [address] [place] [address] 03/14/2026 10:00 AM CDT Office Visit [facility] Urology at the [facility] [address] [place] [address] Leanna Fernandez MD [address] [place] [address] documented as of this encounter Procedures Procedure Name Priority Date/Time Associated Diagnosis Comments XR KNEE 3 VW LEFT Routine 08/27/2008 11: 51 AM RN PROGRESSIVE CARE documented in this encounter Results * XR KNEE 3 VW LEFT (08/27/2008 11:51 AM RN PROGRESSIVE CARE) Anatomical Region Laterality Modality Lower Extremity Other 08/27/2008 11:5 1 AM RN PROGRESSIVE CARE Narrative 08/30/2008 10:48 AM RN PROGRESSIVE CARE [facility] [address] [place] [address] Admit Date: 08/27/2008 DIMPLE FERGUSON Sex: F Admit Prov: SABIHA JOE Date: 1950 Primary Care Prov: CMRN: [id number] Room: [facility] SSN: [id number] IMAGING SERVICES Ordering Prov: LAURASABIHA Misael Accession Number: [id number] Interpretation This procedure was performed at the request of the orthopedic physician. Please see the orthopedic physician s report for details, which can be found in the patient s medical record. Dictated by: RADIOLOGY, DEPARTMENT O Electronically signed by: RADIOLOGY, DEPARTMENT 08/30/2008 10:43 Transcribed: 08/30/2008 10:38 AMK Procedure Note Radiology, Radiologist - 08/30/2008 [facility] [address] [place], [place] [address] Admit Date: 08/27/2008 SUDHADIMPLE Sex: F Admit Prov: SABIHA JOE Date: 1950 Primary Care Prov: CMRN: [id number] Room: [facility] SSN: [id number] IMAGING SERVICES Ordering Prov: SABIHA JOE Interpretation This procedure was performed at the request of the orthopedicphysician. Please see the orthopedic physician s report for details, which canbe found in the patient s medical record. Dictated by: RADIOLOGY, DEPARTMENT O Electronically signed by: RADIOLOGY, DEPARTMENT 08/30/2008 10:43 Transcribed: 08/30/2008 10:38 AMK us Sabiha Joe MD DIAGNOSTIC IMAGING ORDERABLES Fi nal Result documented in this encounter Visit Diagnoses Not on filedocumented in this encounter Care Teams Plastic Surgery Assistant Relationship Specialty Start Date End Date Krissy Clifton MD [address] [place] [address] PCP - General Internal Medicine 10/19/19 documented as of this encounter
== END 2025-05-29 12:15 | disposition home or self-care (01) ==
LOC: CHSIMG 12:17
PROVIDERS: PCP Internal Medicine; Visit Provider Internal Medicine
DX: Z12.31 Encounter for screening mammogram for malignant neoplasm of breast (principal)
CPT/HCPCS: 77063; 77067